=== PATIENT | male | born 1955 | race Caucasian/White ===

== ENCOUNTER → 2016-11-26 | Outpatient (CLI) | payer BC ==
--- NOTE | 2016-11-26 14:04 | CT ---
EXAMINATION TYPE: CT abdomen pelvis wo/w con DATE OF EXAM: 11/26/2016 COMPARISON: 03/05/2015 HISTORY: 61-year-old male Hematuria/hernia. History of bladder cancer with cystectomy. Bleeding from around the stoma and additional known hernia at the stoma site. TECHNIQUE: Contiguous axial scanning of the abdomen and pelvis following administration of 100 ml Omn ipaque 300 IV contrast. Delayed images through the kidneys and coronal/sagittal reconstructions perf ormed. CT DLP: 3156 mGycm Automated exposure control for dose reduction was used. FINDINGS: The heart is normal size without pericardial effusion. There is a tiny hiatal hernia. Mild dependent atelectasis in the visualized lower lungs without pleural effusion. No focal liver lesion or biliary ductal dilatation. Portal venous system is patent. Gallbladder, adrenal glands, spleen, and pancreas appear within normal limits. Symmetric uptake and excretion of contrast from both kidneys without nephrolithiasis. There is mild b ilateral pelvicaliectasis with contrast on the delayed kidney images extending only into the renal pe lves. Ileal conduit with urinary diversion along the right lower quadrant. Mild bilateral ureteral dilatation is noted. Redemonstrated parastomal hernia measuring up to 7.9 cm wide versus 6.9 cm wide in 2015. The hernia c ontains loops of the ileal conduit. There appears to be some mild ileal wall thickening right at the stomal surface, axial image 52 and 51. Scattered nonenlarged and borderline prominent mesenteric lymph nodes measuring up to 5 mm and are no nspecific. No dilated small bowel, free fluid, or free air. There is moderate stool burden with oral contrast progressed to the mid transverse colon. No pericolo franco inflammatory change seen. Bladder is surgically absent. No abnormal fluid collection in the pelvis represent pelvic lymphadenop athy. Bones: There are bilateral L5 pars interarticularis defects with maintained alignment. Focal disc her niation at L5-S1 appears to cause a moderate left neuroforaminal stenosis. IMPRESSION: 1. STATUS POST CYSTECTOMY WITH URINARY DIVERSION AND RIGHT LOWER QUADRANT ILEAL CONDUIT. 2. THE PATIENT'S PARASTOMAL HERNIA IS SLIGHTLY LARGER FROM 2015 NOW MEASURING 7.9 CM WIDE (6.9 CM, IA EVIOUSLY. 3. THERE BE SOME ILEAL WALL THICKENING RIGHT AT THE STOMAL OPENING THAT COULD REPRESENT NONSPECIFIC M ILD INFLAMMATION. 4. NEW MILD BILATERAL PELVICALIECTASIS AND SLIGHT URETERAL DILATATION WELL. EXCRETED CONTRAST ONLY MAKES ITS WAY INTO THE RENAL PELVES ON THE DELAYED KIDNEY IMAGES. MILD RELATIVE ANASTOMOTIC STENOSIS IS NOT EXCLUDED. 5. BILATERAL L5 PARS DEFECTS.
== END | disposition home or self-care (01) ==
LOC: RADCTMAIN 12:27
PROVIDERS: ATTEND Urology
DX: C67.0 Malignant neoplasm of trigone of bladder (principal); K43.5 Parastomal hernia without obstruction or gangrene; N28.89 Other specified disorders of kidney and ureter; Z90.6 Acquired absence of other parts of urinary tract
CPT/HCPCS: 74178; Q9967